=== PATIENT | female | born 1985 | race Caucasian/White ===

== ENCOUNTER 2017-12-05 23:07 | Emergency (ER) | payer OTHER ==
[~2017-12-05] VITALS: Ht 160 cm; Wt 62.6 kg
[~2017-12-05 23:07] MED LIST: BISOPROLOL-HCT1 EAC1 PO; FOLIC ACID1 MG PO; GABAPENTIN300 MG PO; METHOTREXATE2.5 MG PO; NORCO 10-325 T1 EACH PO; PANTOPRAZOLE SO40 MG PO; SOMA350 MG PO; ZANTAC150 MG PO; [UNRECOGNIZED DRUG - OTHER] PO
[2017-12-05] MEDS ORDERED: CEFTRIAXONE SOD 250 MG VIAL IM ONE (23:15)
[2017-12-05] MEDS ORDERED: AZITHROMYCIN 250 MG TAB PO ONE (23:15)
== END 2017-12-05 23:51 | disposition home or self-care (01) ==
LOC: ER 23:07
DX: R30.0 Dysuria (principal); A54.01 Gonococcal cystitis and urethritis, unspecified; F17.210 Nicotine dependence, cigarettes, uncomplicated
CPT/HCPCS: 99283; J0696

== ENCOUNTER 2022-10-25 22:56 | Emergency (ER) | payer OTHER ==
[~2022-10-25] VITALS: Ht 160 cm; Wt 68.0 kg
[2022-10-25] MEDS ORDERED: METHYLPREDNISOLONE SOD SUCC 125 MG/2ML VIAL IV STA (23:04)
[2022-10-25 23:34] LABS: BASOPHILS % 0.3 % (0.0-1.0); EOSINOPHILS # (AUTO) 0.1 (0.0-0.4); EOSINOPHILS % 0.6 % (0.0-6.0); HEMOGLOBIN 13.9 g/dL (12.0-16.0); LYMPHOCYTES # (AUTO) 1.1 (1.0-3.2); LYMPHOCYTES % 13.7 % (18.0-39.1); MEAN CORPUSCULAR HEMOGLOBIN 31.5 pg (28-32); MEAN CORPUSCULAR HGB CONC 33.1 g/dL (31-35); MEAN CORPUSCULAR VOLUME 95.2 fL (81-99); MONOCYTES # (AUTO) 0.8 (0.2-0.8); MONOCYTES % 10.4 % (4.4-11.3); NEUTROPHILS # (AUTO) 5.9 (2.1-6.9); NEUTROPHILS % 74.7 % (38.7-80.0); PLATELET COUNT 224 x10e3/uL (140-360); RED BLOOD COUNT 4.41 x10e6/uL (3.6-5.1); RED CELL DISTRIBUTION WIDTH 12.2 % (11.7-14.4)
[2022-10-25 23:59] LABS: ALBUMIN 3.7 g/dL (3.5-5.0); ALBUMIN/GLOBULIN RATIO 1.2 (0.8-2.0); ANION GAP 14.1 mmol/L (8-16); CALCIUM 8.9 mg/dL (8.4-10.2); CREATININE, SERUM 0.86 mg/dL (0.57-1.11); POTASSIUM 4.1 mmol/L (3.5-5.1)
[2022-10-26] MEDS ORDERED: IOPAMIDOL 370 MG/ML 100 ML INFUS..BTL INJ ONE (00:19)
[2022-10-26 01:21] VITALS: BP 119/90
[2022-10-26 01:33] LABS: AMPHETAMINES SCREEN,URINE NEGATIVE (NEGATIVE); BENZODIAZEPINES SCREEN,URINE NEGATIVE (NEGATIVE); PHENCYCLIDINE SCREEN,URINE NEGATIVE (NEGATIVE)
== END 2022-10-26 01:20 | disposition home or self-care (01) ==
LOC: ER 10-26
DX: R13.10 Dysphagia, unspecified (principal); M06.9 Rheumatoid arthritis, unspecified; I10 Essential (primary) hypertension; F41.9 Anxiety disorder, unspecified; F32.A Depression, unspecified; M54.9 Dorsalgia, unspecified; G89.29 Other chronic pain
CPT/HCPCS: 36415; 70491; 80053; 80307; 81025; 85025; 99284; J2930; Q9967